=== PATIENT | male | born 1935 ===

== ENCOUNTER 2017-12-23 12:05 | Emergency (ER) | payer MEDICARE, OTHER ==
[2017-12-23 12:06] VITALS: BMI 26.7
[2017-12-23 12:35] VITALS: RESP 20
[2017-12-23 13:30] LABS: URINE BACTERIA RARE (<OCC); URINE BILIRUBIN NEGATIVE (NEGATIVE); URINE BLOOD 3+ (NEGATIVE); URINE CLARITY Hazy (Clear); URINE COLOR Yellow (YELLOW); URINE GLUCOSE (UA) 3+ mg/dL (Normal); URINE LEUKOCYTE ESTERASE 3+ Leu/uL (Negative); URINE PROTEIN 2+ mg/dL (NEGATIVE); URINE UROBILINOGEN NORMAL mg/dL (0.2-1.0); WBC CLUMPS FEW /hpf
[2017-12-23 13:31] LABS: BASO # 0.2 K/uL (0.0-0.2); BASO % 1.7 % (0.0-2.0); EOS # 0.2 K/uL (0.0-0.7); EOS % 1.7 % (0.0-4.0); HEMOGLOBIN 10.7 g/dL (12.0-18.0); LYMPH # 1.7 K/uL (1.0-4.3); LYMPH % 16.9 % (20.0-40.0); MEAN CORPUSCULAR HEMOGLOBIN 30.5 pg (27.0-31.0); MEAN PLATELET VOLUME 9.6 fL (7.2-11.7); MONO # 0.8 K/uL (0.0-0.8); MONO % 7.9 % (0.0-10.0); NEUT # 7.3 K/uL (1.8-7.0); NEUT % 71.8 % (50.0-75.0); RBC 3.49 Mil/uL (4.40-5.90); RED CELL DISTRIBUTION WIDTH 14.6 % (11.5-14.5); WHITE BLOOD COUNT 10.1 K/uL (4.8-10.8)
[2017-12-23 13:41] LABS: MEAN CELL VOLUME 92.5 fL (80.0-94.0)
[2017-12-23 14:02] LABS: ALB/GLOB RATIO 0.8 (1.0-2.1); ALBUMIN 3.4 g/dL (3.5-5.0); ALT/SGPT 20 U/L (21-72); AST/SGOT 24 U/L (17-59); BLOOD UREA NITROGEN 26 mg/dL (9-20); CALCIUM 8.8 mg/dl (8.6-10.4); GFR AFRICAN-AMERICAN > 60; GFR NON-AFRICAN AMERICAN > 60
--- NOTE | 2017-12-23 15:34 | CT ---
PROCEDURE: CT scan abdomen pelvis dated 12/23/2017. HISTORY: Gross hematuria COMPARISON: None. TECHNIQUE: Contiguous axial images of the abdomen and pelvis. Oral contrast was administered. No IV contrast given. Coronal and Sagittal reformats generated. This CT exam was performed using one or more of the following dose reduction techniques: Automated exposure control, adjustment of the mA and/or kV according to patient size, and/or use of iterative reconstruction technique. Radiation dose: Total exam DLP = 1267.86 mGy-cm. FINDINGS: LOWER THORAX: There appears to be some minor linear scarring changes both lung bases including the lingular and middle lobe regions however no focal consolidation. No evidence of effusion or basilar pneumothorax. Small hiatal hernia with minimal wall thickening of the distal esophagus likely due to protrusion gastric mucosa. Heart size is mildly enlarged. No significant pericardial effusion. LIVER: The the unenhanced liver exhibits relatively normal size and attenuation pattern without mass collection or calcification so far as can be seen. GALLBLADDER AND BILE DUCTS: Gallbladder incompletely distended likely due to nonfasting state. Suspect a intraluminal gallbladder calculi. Follow-up ultrasound could be performed to confirm. PANCREAS: Pancreas is atrophic and fatty replaced. No obvious pancreatic mass collection or calcification. SPLEEN: Spleen exhibits normal size and attenuation. Multiple small calcifications near the splenic hilar region could be vascular in origin though concomitant calcified granulomata not excluded. ADRENALS: There are no adrenal lesions. KIDNEYS AND URETERS: Kidneys demonstrate relatively symmetric size. There are numerous calcifications, most of which are felt to be vascular in origin though there may be at 1 or 2 small calculi upper pole right kidney the largest measuring 3 mm. No evidence of hydronephrosis. There are infiltration changes seen in the perinephric fat nonspecific which are of uncertain etiology though rule out sequela of infection. BLADDER: The urinary bladder exhibits mild thick-walled appearance in part due to incomplete distention and muscular hypertrophy however there is asymmetric wall thickening along the anterior superior margin of the urinary bladder that is of uncertain etiology however possibility of a a cystitis or invasive wall lesion such as transitional cell carcinoma not excluded. The remaining bladder exhibits relatively and uniform wall thickening in part due to incomplete distention and probable muscular hypertrophy. REPRODUCTIVE: Prostate gland measures approximately 3.9 cm in transverse dimension. APPENDIX: Appendix not seen with certainty however no obvious inflammatory changes right lower quadrant of the abdomen. BOWEL: Evaluation of the bowel is limited due to the lack of oral contrast material. Stomach is partially distended with food debris liquid and air. . Visualized loops of small bowel exhibit normal contour and caliber. No evidence of acute mechanical small bowel obstruction. Stool and air seen throughout the large bowel. No definitive evidence of abnormal mural wall thickening. PERITONEUM: Unremarkable. No fluid collection. No free air. LYMPH NODES: Unremarkable. No enlarged lymph nodes. VASCULATURE: Unremarkable. No aortic aneurysm. Vascular calcifications of the abdominal aorta and iliac arteries the the and many of the branch vessels noted. BONES: Multilevel degenerative spondylosis of the lower thoracic and lumbar spine. There are no acute compression fractures nor retropulsed fragments. OTHER FINDINGS: Questionable scarring changes within the subcutaneous tissues of the right inguinal region. IMPRESSION: Vascular calcifications on both kidneys of with what may represent 1 or 2 nonobstructing calculi right kidney. Perinephric infiltration and at with what appears represent a small amount of perinephric fluid nonspecific ; rule out UTI. There is asymmetric wall thickening of the urinary bladder which is of uncertain etiology ; rule out cystitis versus invasive wall lesion such as a transitional cell carcinoma. Suspect cholelithiasis. Followup ultrasound could confirm See above discussion for additional details and findings.
[2017-12-23 15:41] VITALS: BP 139/59; PULSE 84; TEMP 98; O2SAT 98
--- NOTE | 2017-12-23 17:30 | C.PDOC ---
History Of Present Illness 82 year old male presents to the ED for evaluation of painless hematuria which began 2 days ago. Patient also reports increased urinary frequency. Patient denies fever, chills, back pain, nausea, vomiting, or recent travel. Chief Complaint (Nursing): Male Genitourinary History Per: Patient History/Exam Limitations: no limitations Onset/Duration Of Symptoms: Days (2) Current Symptoms Are (Timing): Still Present Quality Of Discomfort: denies: "Pain" Associated Symptoms: denies: Fever, Chills, Nausea, Vomiting, Back Pain Additional History Per: Patient Past Medical History Reviewed: Historical Data, Nursing Documentation, Vital Signs Vital Signs: Last Vital Signs Temp 98.0 F 12/23/17 15:41 Pulse 84 12/23/17 15:41 Resp 20 12/23/17 15:41 BP 139/59 L 12/23/17 15:41 Pulse Ox 98 12/23/17 18:19 - Medical History PMH: CAD, COPD, Diabetes, HTN, Peripheral Edema Denies: Arthritis, Depression, Fibromyalgia, Fractures, Hyperthyroidism, Hypothyroidism, Osteoporosis, Chronic Kidney Disease, Sickle Cell Disease Surgical History: CABG, Coronary Stent Denies: Pacemaker - [facility] Procedures ANGIOPLASTY OF OTHER NON-CORONARY VESSEL(S) (07/08/13) BELOW KNEE AMPUTAT NEC (01/04/14) CENTRAL VENOUS CATHETER PLACEMENT WITH GUIDANCE (01/04/14) CONTRAST AORTOGRAM (07/08/13) CONTRAST ARTERIOGRAM-LEG (07/08/13) DERMAL REGENERATIVE GRAFT (11/03/13) EXCIS DEBRIDE OF WOUND, INFECT, OR BURN (01/30/13) IMMOBILIZ/WOUND ATTN NEC (07/08/13) METATARSAL/TARSAL BIOPSY (01/30/13) NONEXCIS DEBRID OF WOUND, INFECT, OR BURN (11/03/13) PACKED CELL TRANSFUSION (01/04/14) PROCEDURE ON THREE VESSELS (07/08/13) Family History: States: Unknown Family Hx - Social History Hx Tobacco Use: No Hx Alcohol Use: No Hx Substance Use: No - Immunization History Hx Tetanus Toxoid Vaccination: No Hx Influenza Vaccination: No Hx Pneumococcal Vaccination: No Review Of Systems Constitutional: Negative for: Fever, Chills Gastrointestinal: Negative for: Nausea, Vomiting Genitourinary: Positive for: Frequency, Hematuria Physical Exam - Physical Exam Appears: Non-toxic Skin: Normal Color, Warm, Dry Head: Atraumatic, Normacephalic Eye(s): bilateral: Normal Inspection Oral Mucosa: Moist Neck: Supple Chest: Symmetrical, No Deformity, No Tenderness Cardiovascular: Rhythm Regular, No Murmur Respiratory: Normal Breath Sounds, No Rales, No Rhonchi, No Wheezing Gastrointestinal/Abdominal: Bowel Sounds (present ), Soft, Tenderness (mild, suprapubic ), No Guarding, No Rebound Back: No CVA Tenderness Extremity: Capillary Refill (less than 2 seconds ), Other (bilateral below-knee amputations ) Neurological/Psych: Oriented x3, Normal Speech, Normal Cognition ED Course And Treatment - Laboratory Results Result Diagrams: 12/23/17 13:23 12/23/17 13:47 O2 Sat by Pulse Oximetry: 98 (on RA) Pulse Ox Interpretation: Normal - CT Scan/US CT A/P Other Rad Studies (CT/US): Interpreted By Me, Read By Radiologist, Radiology Report Reviewed CT/US Interpretation: PROCEDURE: CT scan abdomen pelvis dated 12/23/2017. HISTORY: Gross hematuria. COMPARISON: None. TECHNIQUE: Contiguous axial images of the abdomen and pelvis. Oral contrast was administered. No IV contrast given. Coronal and Sagittal reformats generated. This CT exam was performed using one or more of the following dose reduction techniques: Automated exposure control, adjustment of the mA and/or kV according to patient size, and/or use of iterative reconstruction technique. Radiation dose: Total exam DLP = 1267.86 mGy-cm. FINDINGS: LOWER THORAX: There appears to be some minor linear scarring changes both lung bases including the lingular and middle lobe regions however no focal consolidation. No evidence of effusion or basilar pneumothorax. Small hiatal hernia with minimal wall thickening of the distal esophagus likely due to protrusion gastric mucosa. Heart size is mildly enlarged. No significant pericardial effusion. LIVER: The the unenhanced liver exhibits relatively normal size and attenuation pattern without mass collection or calcification so far as can be seen. GALLBLADDER AND BILE DUCTS: Gallbladder incompletely distended likely due to nonfasting state. Suspect a intraluminal gallbladder calculi. Follow-up ultrasound could be performed to confirm. PANCREAS: Pancreas is atrophic and fatty replaced. No obvious pancreatic mass collection or calcification. SPLEEN: Spleen exhibits normal size and attenuation. Multiple small calcifications near the splenic hilar region could be vascular in origin though concomitant calcified granulomata not excluded. ADRENALS: There are no adrenal lesions. KIDNEYS AND URETERS: Kidneys demonstrate relatively symmetric size. There are numerous calcifications , most of which are felt to be vascular in origin though there may be at 1 or 2 small calculi upper pole right kidney the largest measuring 3 mm. No evidence of hydronephrosis. There are infiltration changes seen in the perinephric fat nonspecific which are of uncertain etiology though rule out sequela of infection. BLADDER: The urinary bladder exhibits mild thick-walled appearance in part due to incomplete distention and muscular hypertrophy however there is asymmetric wall thickening along the anterior superior margin of the urinary bladder that is of uncertain etiology however possibility of a a cystitis or invasive wall lesion such as transitional cell carcinoma not excluded. The remaining bladder exhibits relatively and uniform wall thickening in part due to incomplete distention and probable muscular hypertrophy. REPRODUCTIVE: Prostate gland measures approximately 3.9 cm in transverse dimension. APPENDIX : Appendix not seen with certainty however no obvious inflammatory changes right lower quadrant of the abdomen. BOWEL: Evaluation of the bowel is limited due to the lack of oral contrast material. Stomach is partially distended with food debris liquid and air. . Visualized loops of small bowel exhibit normal contour and caliber. No evidence of acute mechanical small bowel obstruction. Stool and air seen throughout the large bowel. No definitive evidence of abnormal mural wall thickening. PERITONEUM: Unremarkable. No fluid collection. No free air. LYMPH NODES: Unremarkable. No enlarged lymph nodes. VASCULATURE: Unremarkable. No aortic aneurysm. Vascular calcifications of the abdominal aorta and iliac arteries the the and many of the branch vessels noted. BONES: Multilevel degenerative spondylosis of the lower thoracic and lumbar spine. There are no acute compression fractures nor retropulsed fragments. OTHER FINDINGS: Questionable scarring changes within the subcutaneous tissues of the right inguinal region. IMPRESSION: Vascular calcifications on both kidneys of with what may represent 1 or 2 nonobstructing calculi right kidney. Perinephric infiltration and at with what appears represent a small amount of perinephric fluid nonspecific ; rule out UTI. There is asymmetric wall thickening of the urinary bladder which is of uncertain etiology ; rule out cystitis versus invasive wall lesion such as a transitional cell carcinoma. Suspect cholelithiasis. Followup ultrasound could confirm. See above discussion for additional details and findings. Medical Decision Making Medical Decision Making: Impression: 82 year old male with painless hematuria x 2 days Plan: * bloodwork * urinalysis * CT A/P * reassess and disposition Progress: Bloodwork, urinalysis, and CT A/P ordered and reviewed. Disposition - Disposition Referrals: Curt Alfaro, [Non-Staff] - Disposition: HOME/ ROUTINE Disposition Time: 15:00 Condition: GOOD Additional Instructions: Thank you for letting us take care of you today. The emergency medical care you received today was directed at your acute symptoms. If you were prescribed any medication, please fill it and take as directed. It may take several days for your symptoms to resolve. Return to the Emergency Department if your symptoms worsen, do not improve, or if you have any other problems. Please contact your doctor or call one of the physicians/clinics you have been referred to that are listed on the Patient Visit Information form that is included in your discharge packet. Bring any paperwork you were given at discharge with you along with any medications you are taking to your follow up visit. Our treatment cannot replace ongoing medical care by a primary care provider (PCP) outside of the emergency department. Thank you for allowing the [facility] team to be part of your care today. Follow up with your primary care doctor this week for re-evaluation and further management. Ezequiel por dejarnos atenderlo hoy. La atencin mdica de emergencia que recibi hoy estaba dirigida a carolyn sntomas agudos. Si le prescribieron algn medicamento, llnelo y tome segn las indicaciones. Carolyn sntomas pueden tardar varios gunn en resolverse. Regrese al Departamento de Emergencia si carolyn s ntomas empeoran, no mejoran o si tiene algn otro problema. Comunquese con charlton mdico o llame a moe de los mdicos / clnicas a los que patrick sido referido que figura en el formulario de Informacin de visita del paciente que se incluye en charlton paquete de sunday. Traiga todos los documentos que recibi al momento del sunday junto con los medicamentos que est tomando en charlton visita de seguimiento. Nuestro tratamiento no puede reemplazar la atencin mdica en curso por parte de un proveedor de atencin primaria (PCP) fuera del departamento de emergencias. Ezequiel por permitir que el equipo de [facility] [email or web address] sea parte de charlton cuidado hoy. Mary un seguimiento con charlton mdico de atencin primaria esta semana para la reevaluacin y la administracin posterior. Prescriptions: Nitrofurantoin Macrocrystals [Macrobid] 100 mg PO BID #28 cap Instructions: Urinary Tract Infection, Adult (DC), Acute Cystitis (DC) Forms: Gen Discharge Inst Yakut, [facility] (Yakut) Print Language: MACEDONIAN - Clinical Impression Clinical Impression: UTI (urinary tract infection), Cystitis - Scribe Statement The provider has reviewed the documentation as recorded by the Scribe (Breana Witt) Provider Attestation: All medical record entries made by the Scribe were at my direction and personally dictated by me. I have reviewed the chart and agree that the record accurately reflects my personal performance of the history, physical exam, medical decision making, and the department course for this patient. I have also personally directed, reviewed, and agree with the discharge instructions and disposition.
== END 2017-12-23 18:18 | disposition home or self-care (01) ==
LOC: C.ER 12:05
DX: N30.91 Cystitis, unspecified with hematuria (principal)